=== PATIENT | male | born 1975 | race Caucasian/White ===

== ENCOUNTER 2021-11-13 11:33 | Emergency (ER) | payer OTHER, BC ==
[2021-11-13] MEDS ORDERED: Ibuprofen 800 MG Tab PO ONE (12:19)
--- NOTE | 2021-11-13 12:20 | EDM.PDOC ---
ED HPI GENERAL MEDICAL PROBLEM - General Chief Complaint: Upper Extremity Injury/Pain Stated Complaint: RT ARM PAIN Time Seen by Provider: 11/13/21 12:19 Source of Information: Reports: Patient - History of Present Illness INITIAL COMMENTS - FREE TEXT/NARRATIVE: Right mid humerus pain from high speed rotating pipe wrench. Cart at work. Pain is severe and worse with movement. No associated numbness or weakness. Patient did not fall and there is no head or neck trauma. No numbness or weakness Right Upper Arm Pain Score (Numeric/FACES): 6 - Related Data Allergies Allergy/AdvReac Type Severity Reaction Status Date / Time No Known Allergies Allergy Verified 12/16/15 07:[address] [facility] Home Meds: Home Meds . [No Known Home Meds] 11/28/15 [History] Past Medical History Other HEENT History: tonsillectomy - Past Surgical History Other Male Surgeries/Procedures: Vasectomy Review of Systems - Review of Systems Review Of Systems: See Below Constitutional: Reports: No Symptoms Cardiovascular: Reports: No Symptoms Musculoskeletal: Reports: Arm Pain Skin: Reports: Bruising Neurological: Reports: Numbness, Tingling, Weakness ED EXAM, GENERAL - Physical Exam Exam: See Below Free Text/Narrative:: CONSTITUTIONAL: well appearing in no acute distress SKIN: dry, and intact without rash HENT: Normocephalic, atraumatic, NECK: normal range of motion PULMONARY: normal chest rise and fall, no respiratory distress or stridor NEUROLOGIC: normal speech, moves all extremities, grossly non-focal MUSCULOSKELETAL: Patient with some swelling and bruising and tenderness to the bicep area of the right mid humerus. There is no underlying bony tenderness. There is no defect in the muscle bed. Patient has good bicep tendon function. Full range of motion of the shoulder. Strong radial pulse with cap refill less than 2 seconds and sensorimotor function intact. PSYCHIATRIC: normal mood and affect Course - Vital Signs Text/Narrative:: Differential diagnosis: Fracture, dislocation, strain, tendon avulsion, compartment syndrome, rotator cuff tear, other Patient presents with blunt injury to the right arm. X-rays negative for fracture. Extremity is neurovascularly intact with soft compartments. Ibuprofen and patient is already feeling significantly better. Supportive treatment with return precautions discussed and PCP/Ortho follow-up Last Recorded V/S: Last Vital Signs Temp 36.8 C 12/16/21 12:15 Pulse Resp 16 11/13/21 12:15 BP 145/99 H 11/13/21 12:15 Pulse Ox 94 L 11/13/21 12:15 - Orders/Labs/Meds Meds: Medications Discontinued Medications Generic Name Dose Route Start Last Admin Trade Name Emily PRMaverick Reason Stop Dose Admin Ibuprofen 800 mg 11/13/21 12:19 11/13/21 12:28 Ibuprofen 800 Mg Tab PO 11/13/21 12:20 800 mg ONETIME ONE Administration Departure - Departure Time of Disposition: 13:54 Disposition: Home, Self-Care 01 Condition: Good Clinical Impression: Blunt injury, Arm pain, right - Discharge Information Instructions: Contusion Referrals: PCP,None [Primary Care Provider] - Forms: ED Department Discharge Additional Instructions: Take ibuprofen for pain and inflammation. Return for marked increased swelling of the arm, tingling or weakness or cold extremity, change or worsening condition or lack of improvement. If the pain persists he may need to follow-up with orthopedic doctor to exclude tendon or ligamentous injury or muscle injury of any part in the right upper extremity. The following information is given to patients seen in the emergency department who are being discharged to home. This information is to outline your options for follow-up care. We provide all patients seen in our emergency department with a follow-up referral. The need for follow-up, as well as the timing and circumstances, are variable depending upon the specifics of your emergency department visit. If you don't have a primary care physician on staff, we will provide you with a referral. We always advise you to contact your personal physician following an emergency department visit to inform them of the circumstance of the visit and for follow-up with them and/or the need for any referrals to a consulting specialist. The emergency department will also refer you to a specialist when appropriate. This referral assures that you have the opportunity for follow-up care with a specialist. All of these measure are taken in an effort to provide you with optimal care, which includes your follow-up. Primary care clinics in the area: [facility] [address] [place] [address] [facility] [address] [place] [address] Under all circumstances we always encourage you to contact your private physician who remains a resource for coordinating your care. When calling for follow-up care, please make the office aware that this follow-up is from your recent emergency room visit. If for any reason you are refused follow-up, please contact the [facility] Emergency Department at and asked to speak to the emergency department charge nurse. Sepsis Event Note (ED) - Evaluation Sepsis Screening Result: No Definite Risk - Focused Exam Vital Signs: Vital Signs Temp Resp BP Pulse Ox 11/13/21 12:15 36.8 C 16 145/99 H 94 L
--- NOTE | 2021-11-13 13:33 | CR ---
Indication: Pain, blow to midshaft, oilfield pipe wrench. Technique: Right humerus 4 views. Comparison: None. Findings: No acute fracture or dislocation. The shoulder and elbow appear normally aligned. Soft tissues are unremarkable. Impression: No acute findings. Dictated by Diane Nassar MD @ 11/13/2021 1:32:03 PM (Electronically Signed)
[2021-11-13 14:16] VITALS: BP 131/91; PULSE 79
== END 2021-11-13 14:16 | disposition home or self-care (01) ==
LOC: MW.ED 11:33
DX: S49.91XA Unspecified injury of right shoulder and upper arm, initial encounter (principal); W22.09XA Striking against other stationary object, initial encounter; Y99.0 Civilian activity done for income or pay
CPT/HCPCS: 73060; 99283; A9270